=== PATIENT | male | born 1925 | race Caucasian/White ===

== ENCOUNTER 2016-08-26 09:21 | Inpatient (IN) | payer MEDICARE ==
[~2016-08-26] VITALS: Ht 177.8 cm; Wt 85.5 kg
--- NOTE | ~2016-08-26 | CO ---
ADMIT: 08/26/2016 RM/LOC: 532 [facility] MR#: [id number] [address] [address] KELY ARELLANO [address] [place] [address] Consultation SEX: M AGE: 89 : 1925 DATE OF CONSULTATION: 08/27/2016 ATTENDING PHYSICIAN: Rod Vallecillo CONSULTING PHYSICIAN: Gaston Smith MD REASON FOR CONSULTATION: Chronic cholecystitis, cholelithiasis, probable gallstone pancreatitis. HISTORY OF PRESENT ILLNESS: This patient is a very pleasant, 89-year-old gentleman who came in because of abdominal pain, some nausea, and vomiting. [facility] He complains of kind of some periumbilical upper abdominal pain. Ultimately found on CT scan to have a gallstone, but nothing else significant. He did have an elevated lipase. They ultimately did ultrasound that shows a good-sized gallstone, kind of stuck in the neck of the gallbladder without any other complicating features. In visiting with him, he has maybe had a little bit of these attacks but nothing this significant in the past and at this point, visiting with him and family, they are agreeable to proceed with laparoscopic cholecystectomy. I will plan on doing an intraoperative cholangiogram because of the pancreatitis and we will see what it shows. Discussed the risks, benefits, possible complications, and alternatives including open procedure, things of that nature, they understand and wish to proceed. PAST MEDICAL HISTORY: Significant for the above. He does have a history of COPD, chronic O2 dependent; history of kidney stones; diverticulosis; depression; some obstructive sleep apnea on CPAP chronically; vitamin D deficiency; some lumbar compression fracture; history of hypertension and adenocarcinoma of the prostate. ALLERGIES: HE HAS NO KNOWN DRUG ALLERGIES. CURRENT MEDICATIONS: Please see chart. He is not on any significant blood thinners. SOCIAL HISTORY: He currently lives at home independently. He does not smoke, does not drink. He is . FAMILY HISTORY: Otherwise, noncontributory. REVIEW OF SYSTEMS: Currently is negative for significant abdominal pain. He has had maybe a little twinge there, but that is it. Otherwise, mild shortness of breath, everything else is negative. PHYSICAL EXAMINATION: GENERAL: He is alert, he is oriented, very pleasant gentleman. He is in no acute distress. ADMIT: 08/26/2016 RM/LOC: 532 [facility] MR#: [id number] [address] [address] KELY ARELLANO [address] [place] [address] Consultation SEX: M AGE: 89 : 1925 HEENT: His sclerae appear nonicteric. CHEST: Clear. He does have some decreased breath sounds and end expiratory wheezes. HEART: Regular rate and rhythm. ABDOMEN: Soft, mildly protuberant, distended. No mass or organomegaly detected. He does have minimal pain in the upper epigastric right upper quadrant. EXTREMITIES: Without significant clubbing or cyanosis or edema. ASSESSMENT AND PLAN: At this time, chronic cholecystitis and cholelithiasis. The plan will be to proceed with laparoscopic cholecystectomy with intraoperative cholangiogram. Gaston Smith MD/ xiomara JOB #: [id number] CC: Rod Vallecillo, Attending Physician [facility] Physician, Family Physician
--- NOTE | 2016-08-27 12:55 | HP ---
ADMIT: 08/26/2016 RM/LOC: 633 [facility] MR#: [id number] [address] [address] KELY ARELLANO [address] [place] [address] History and Physical SEX: M AGE: 89 : 1925 DATE OF SERVICE: CHIEF COMPLAINT: Abdominal pain, nausea, and vomiting. HISTORY OF PRESENT ILLNESS: The patient is a very pleasant 89-year-old gentleman, [facility], has a history of O2- dependent COPD, hypertension, and obstructive sleep apnea, who presents to [facility] Emergency Room today with complaints of about approximately one week of abdominal symptoms. The patient noted periumbilical abdominal discomfort, intermittent in nature, slowly becoming more severe. The patient noted it was always worse after meals and then today, really developed some nausea without vomiting. With the pain worsening and the nausea, that was what brought him into the emergency room. The patient denies any bowel complaints. He has some chronic constipation, but nothing new. As of recent, no blood or melena has been noted. No recent medication changes have been noted. Denies any urinary complaints. In the emergency room, he was noted to have a lipase greater than 3000. He is admitted for further evaluation and treatment. Right now, I am visiting with the patient. Does not have any pain currently. Denies chest pain or shortness of breath. Otherwise, he is not a drinker. He denies alcohol use, not a drinker right now. No obvious other medication offenders are noted. PAST MEDICAL HISTORY: On review of the chart: 1. 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 2. Hypertension. 3. History of nephrolithiasis status post cystourethroscopy and lithotripsy. 4. History of diverticulosis. 5. Chronic obstructive pulmonary disease/chronic hypoxic respiratory failure. 6. Depression. 7. Obstructive apnea on CPAP. 8. Osteoporosis. 9. History of subclinical hypothyroidism. 10.Vitamin D deficiency. 11.History of lumbar compression fracture. ALLERGIES: NO KNOWN MEDICAL ALLERGIES. CURRENT HOME MEDICATIONS: 1. Albuterol. 2. Amlodipine. 3. Celexa. 4. Synthroid. 5. Metoprolol. 6. Mometasone. 7. Spiriva. SOCIAL HISTORY: He lives at home. He is a nonsmoker, nondrinker. He is . ADMIT: 08/26/2016 RM/LOC: 633 [facility] MR#: [id number] [address] [address] KELY ARELLANO [address] [place] [address] History and Physical SEX: M AGE: 89 : 1925 FAMILY HISTORY: Noncontributory. REVIEW OF SYSTEMS: Noted above. All other systems are reviewed and are negative. PHYSICAL EXAMINATION: VITAL SIGNS: In the emergency room, 116/64, MAP of 74, pulse of 82, sats 94%. GENERAL: This is an elderly gentleman, in no apparent distress. He is alert and oriented x3. Cooperative with the examiner. HEENT: Normocephalic and atraumatic. Mucous membranes are little dry. NECK: Supple. LUNGS: He has diminished a little bit just throughout. No wheezes, rhonchi, or rales. HEART: Regular. ABDOMEN: Soft. It is nondistended. He does have a little bit of periumbilical tenderness, but no rebound or guarding is noted. EXTREMITIES: No significant edema. SKIN: Shows no obvious rashes. NEUROLOGIC: Cranial nerves intact. No obvious focal deficits are noted. LABORATORY DATA: Lab work is reviewed showing a hemoglobin of 11.1, white count 10.7, and 227,000 platelets. Sodium 139, potassium 4, BUN is 22, creatinine 1. Bicarb is 25. Corrected calcium is 9.6. AST 16, ALT 15, alkaline phosphatase 61, total bilirubin is 0.6. CT scan of the abdomen and pelvis was obtained, contrast study, report from that was reviewed. This was obtained in the emergency room, showed a large calcified gallstone in the gallbladder with mild intrahepatic ductal dilatation. Common bile duct and pancreatic ducts were visualized, there was no wall thickening noted. There were emphysematous changes in the lung christian and there was some prominence in the region of the ampulla. ASSESSMENT AND PLAN: 1. Intermittent abdominal pain, nausea, likely consistent with acute pancreatitis. 2. Cholelithiasis. 3. Chronic obstructive pulmonary disease. ADMIT: 08/26/2016 RM/LOC: 633 [facility] MR#: [id number] [address] [address] KELY ARELLANO [address] [place] [address] History and Physical SEX: M AGE: 89 : 1925 4. Chronic hypoxic respiratory failure. 5. Hypertension. 6. Obstructive sleep apnea. At this point, the patient is not having any pain and nausea at this time. Plan on IV fluids, antiemetics, and pain medications and bowel rest with n.p.o. status at this point. My question is whether over the past week, he has past a couple of small stones that gave him gallstone pancreatitis. We need to check an ultrasound to look at the gallbladder a little bit more closely. I do wonder if he will need a cholecystectomy. As mentioned, we will see what the ultrasound looks like and go from there. We will try to get him on the rest of his home medications right now, and we will follow him closely as an inpatient. Rod Vallecillo MD/ xiomara JOB #: [id number] CC: Rod Vallecillo, Attending Physician [facility] Physician, Family Physician
--- NOTE | 2016-08-28 12:25 | OR ---
ADMIT: 08/26/2016 RM/LOC: 532 [facility] MR#: [id number] [address] [address] CAROLYN ARELLANOGasper Rosales [address] [place] [address] Operative/Delivery Room Report SEX: M AGE: 89 : 1925 SURGERY DATE: 08/27/2016 SURGEON: Gaston Smith MD PREOPERATIVE DIAGNOSES: Chronic cholecystitis and cholelithiasis. POSTOP DIAGNOSIS: Chronic cholecystitis and cholelithiasis. FINAL PATHOLOGY: Pending. PROCEDURE: Laparoscopic cholecystectomy with intraoperative cholangiogram. ANESTHESIA: General. SKIN DRIER: LIDA Cali, necessary for adequate exposure, retraction, and completion of this case. INDICATION FOR PROCEDURE: Please see H and P. PROCEDURE IN DETAIL: After the risks, benefits, possible complications, and the alternatives had been explained, and informed consent had been obtained, the patient was taken back to the operating room, underwent general endotracheal tube anesthesia, and the surgical field was prepped and draped in a sterile manner. An incision was made in the infraumbilical region. The Veress needle was inserted. The abdomen was then insufflated with CO2. Once there was adequate insufflation, a 10 mm epigastric port, and two 5 mm right upper quadrant ports were placed. The gallbladder as you can see in picture #1, fair amount of adhesions was raised superiorly and anteriorly, slowly dissected out the cystic duct as seen in picture #2, and was nice and clearly coming directly from the gallbladder. Introduced cholangiogram catheter percutaneously through the right upper quadrant. I placed a clip on the gallbladder side. Opened the cystic duct and introduced the catheter and obtained an intraoperative cholangiogram, and to start with immediate filling right down into the duodenum, little bit enlarged common bile duct, and I had a hard time getting the proximal ducts, and I knew my anatomy was okay, and I ended giving finally some morphine and waited about 3 to 4 minutes and then was able to get some of the common hepatic duct, proximally to fill, but you could see it just dump right into the duodenum, and so I could never get a good visualization of all the proximal ducts, but was quite confident that my anatomy was correct. So, I went ahead and removed the cholangiogram catheter and clip, clipped distally twice and it was divided behind this. The cystic artery was dissected out it was clipped twice proximally, distally and divided, and then the gallbladder was removed from liver bed using ADMIT: 08/26/2016 RM/LOC: 532 [facility] MR#: [id number] [address] [address] KELY ARELLANO [facility] [place] [address] Operative/Delivery Room Report SEX: M AGE: 89 : 1925 electrocautery Endoshears. It was placed into an EndoCatch bag as seen in picture #3, and removed through the epigastric port site. Irrigated as much as irrigation as possible. The liver bed appeared dry. I did not see any significant signs of bleeding, clips were in good position, irrigated and removed as much irrigation as I could, and then injected 0.5% Marcaine in the incision sites for pain control. Closed the fascia of the epigastric port site with an 0-Polysorb suture using the suture passer. All the ports were removed. The skin was all closed with 4-0 Monocryl. He tolerated it well. They were working on extubating him when I left the room. He was in stable and satisfactory condition with all needle and lap counts correct x2. Gaston Smith MD/ xiomara JOB #: [id number] CC: Rod Vallecillo, Attending Physician [facility] Physician, Family Physician Rod Vallecillo MD
[2016-09-01] MEDS ORDERED: PROAIR RESPICL90 MCG IH (13:58)
[2016-09-01] MEDS ORDERED: SPIRIVA18 MCG IH (13:59)
[2016-09-01] MEDS ORDERED: ASMANEX220 MC1 IH (13:59)
[2016-09-01] MEDS ORDERED: METOPROLOL TART50 MG PO (14:00)
[2016-09-01] MEDS ORDERED: NORVASC DPS10 MG PO (14:00)
[2016-09-01] MEDS ORDERED: CELEXA40 MG PO (14:00)
[2016-09-01] MEDS ORDERED: AMOXIL-DPS500 MG PO (14:01)
[2016-09-01] MEDS ORDERED: LEVOTHYROXINE25 MCG PO (14:01)
[2016-09-01] MEDS ORDERED: ASPIRIN EC81 MG PO (14:01)
[2016-09-01] MEDS ORDERED: TYLENOL DPS325 MG PO (14:02)
[2016-09-01] MEDS ORDERED: PREDNISONE20 MG PO (14:02)
--- NOTE | 2016-09-10 16:21 | DS ---
ADMIT: 08/26/2016 RM/LOC: 527 [facility] MR#: [id number] [address] [address] KELY ARELLANO [address] [place] [address] Discharge Summary SEX: M AGE: 89 : 1925 ADMISSION DATE: 08/26/2016 DISCHARGE DATE: 08/31/2016 DISCHARGE DIAGNOSES: 1. Acute hypoxic respiratory failure resolved. 2. Chronic obstructive pulmonary disease with chronic hypoxic respiratory failure. 3. Gallstone pancreatitis resolved. 4. Cholelithiasis, symptomatic, status post laparoscopic cholecystectomy. 5. Obstructive sleep apnea. 6. Hypertension. 7. Hyperlipidemia. 8. Depression. PROCEDURES: Laparoscopic cholecystectomy by General Surgery. CONSULTATIONS: General Surgery. REASON FOR ADMISSION: An 89-year-old gentleman with past medical history of O2 dependent COPD, sleep apnea, hypertension, hyperlipidemia, depression, who presents to [facility] emergency room on the day of admission with complaints of abdominal pain. Was noted to have pancreatitis. He was admitted for further evaluation and treatment. For complete details, please see my H and P dictated on the day of admission. HOSPITAL COURSE: At the time of admission, patient was placed in a telemetry bed. He had undergone CT scanning. He underwent an ultrasound that did show a large gallstone. There was thought that he probably had passed a gallstone that had caused his pancreatitis recently, and he was still having symptoms of biliary colic so General Surgery was consulted, and patient was taken the operating room for laparoscopic cholecystectomy. Patient tolerated the procedure well but postoperatively was very somnolent in the PACU and was not able to be extubated. He was sent to the ICU where he was maintained on the ventilator overnight and was extubated within about 12-18 hours at that time and was placed back on nasal cannula. He was seen by PT/OT and Speech. He ADMIT: 08/26/2016 RM/LOC: 527 [facility] MR#: [id number] [address] [address] EILEEN EDGE J [address] [place] [address] Discharge Summary SEX: M AGE: 89 : 1925 slowly improved. His LFTs had improved, and his pancreatitis had resolved. He was started on his home medications and was placed back on his home oxygen. He ambulated and ate without difficulties and was thought to be ready for discharge home on 08/31. DISCHARGE MEDICATIONS: Are on his discharge medication list. DISCHARGE ACTIVITY: Is as tolerated. FOLLOWUP: He will have follow up with me at [facility] in the next couple of weeks as well as General Surgery follow up after that cholecystectomy. Rod Vallecillo MD/ mihir JOB #: [id number] CC: Rod Vallecillo MD, Attending Physician [facility] Physician, Family Physician
--- NOTE | 2016-09-25 21:25 | ER ---
ADMIT: 08/26/2016 RM/LOC: 633 [facility] MR#: [id number] [address] [address] KELY ARELLANO [address] [place] [address] Emergency Room Report SEX: M AGE: 89 : 1925 DATE: 08/26/2016 CHIEF COMPLAINT: Abdominal pain. HISTORY OF PRESENT ILLNESS: This is a pleasant 89-year-old white male presenting to the ER complaining of abdominal pain for the past seven days. The patient states this pain started about seven days ago, kind of waxes and wanes, especially noticed that pain increases when he is eating. The patient states that he is not having any pain at this point in time. He has noted generalized malaise and loss of appetite over the last seven days. He states he has not been eating much, but has been drinking okay. He denies any recent travel, recent trauma, or any sick contacts. He describes this pain as aching in the lower left quadrant without migration. It was associated with some nausea throughout the night, but he is not nauseated at this time. The patient states he has never had problems like this before and has no history of any abdominal surgeries or diverticulitis. The patient has no history of any cardiac disease or diabetes or history of obstruction. He does have a significant history of hypertension and COPD, for which he is chronically on 2 L of oxygen. No history of any smoking, drugs, or alcohol use. COURSE IN THE EMERGENCY ROOM: The patient was seen and examined. I was unable to reproduce his pain. On physical examination, he just generalizes that throughout the night, he experiences pain in the left lower quadrant. Abdomen is not diffusely tender. No signs of rebound or guarding. Given his age and comorbidities, I did proceed to get some lab work and a CT scan of his abdomen and pelvis. Lab work returned. CBC was slightly elevated. White blood count of 10.7, hemoglobin was 11.1, hematocrit 35.2, platelets 227. CMP was unremarkable. Liver function testing, AST and ALT were within normal limits. Lipase was elevated at 3228. CT scan was also performed and was fairly unremarkable. It did show a large gallstone, but the radiologist did not believe this to be obstructive at this time. The patient does do his ADMIT: 08/26/2016 RM/LOC: 633 [facility] MR#: [id number] [address] [address] KELY ARELLANO Bobby [address] [place] [address] Emergency Room Report SEX: M AGE: 89 : 1925 doctoring with the [place]. He was asked if he would like to be transferred to the [facility] Rod Vallecillo was called and accepted thepatient for admission for acute pancreatitis. IMPRESSION: 1. Pancreatitis. 2. Chronic obstructive pulmonary disease, chronically on 2 L. 3. Hypertension. 4. Hypothyroidism. DISPOSITION: The patient was admitted to the care of Dr. Rod Vallecillo in stable condition. LIDA Jasmine / Praveen Lynch MD / modl JOB #: [id number] CC: Rod Vallecillo MD, Attending Physician . [facility] Physician
== END 2016-08-31 16:42 | disposition home or self-care (01) | DRG 417 ==
LOC: ER 09:21 → 6PED 12:15 → 5MS 12:15 → 3ICU 08-27 15:17 → 5MS 08-30 10:23
PROVIDERS: ADMIT Internal Medicine
PROC: 5A1935Z Respiratory Ventilation, Less than 24 Consecutive Hours (ICD-10-PCS; principal; 2016-08-27)
PROC: BF101ZZ Fluoroscopy of Bile Ducts using Low Osmolar Contrast (ICD-10-PCS; principal; 2016-08-27)
PROC: 0FT44ZZ Resection of Gallbladder, Percutaneous Endoscopic Approach (ICD-10-PCS; principal; 2016-08-27)
DX: K80.12 Calculus of gallbladder with acute and chronic cholecystitis without obstruction (principal); K85.10 Biliary acute pancreatitis without necrosis or infection; J96.21 Acute and chronic respiratory failure with hypoxia; J44.9 Chronic obstructive pulmonary disease, unspecified; Z99.81 Dependence on supplemental oxygen; I10 Essential (primary) hypertension; E03.9 Hypothyroidism, unspecified; E55.9 Vitamin D deficiency, unspecified; G47.33 Obstructive sleep apnea (adult) (pediatric); K59.09 Other constipation; K57.90 Diverticulosis of intestine, part unspecified, without perforation or abscess without bleeding; F32.9 Major depressive disorder, single episode, unspecified; M81.0 Age-related osteoporosis without current pathological fracture; Z85.46 Personal history of malignant neoplasm of prostate; Z87.442 Personal history of urinary calculi